=== PATIENT | male | born 1965 | race Two or more races ===

== ENCOUNTER 2018-05-06 13:27 | Emergency (ER) | payer OTHER ==
[~2018-05-06] VITALS: Ht 180.3 cm; Wt 108.9 kg
[2018-05-06] MEDS ORDERED: [UNRECOGNIZED DRUG - OTHER] PO (14:26)
== END 2018-05-06 18:45 | disposition home or self-care (01) ==
LOC: ER 13:27 → EDSEX 13:41 → ER 18:45
DX: R22.1 Localized swelling, mass and lump, neck (principal); K11.20 Sialoadenitis, unspecified; K11.5 Sialolithiasis

== ENCOUNTER 2018-11-17 07:12 | Outpatient (CLI) | payer OTHER ==
[~2018-11-17 07:12] MED LIST: [UNRECOGNIZED DRUG - OTHER] PO
== END 2018-11-17 07:29 | disposition home or self-care (01) ==
LOC: TOM 07:12
DX: C05.1 Malignant neoplasm of soft palate (principal)

== ENCOUNTER 2019-07-12 08:07 | Outpatient (CLI) | payer OTHER | END 2019-07-12 08:49 | disposition home or self-care (01) | LOC: NUCLEAR 08:07 | DX: C05.1 Malignant neoplasm of soft palate (principal) | CPT/HCPCS: 78815; A9552 ==

== ENCOUNTER → 2020-07-19 | Outpatient (CLI) | payer OTHER | END | disposition home or self-care (01) | LOC: MRI 08:47 | PROVIDERS: ATTEND Surgery | DX: R22.1 Localized swelling, mass and lump, neck (principal); C10.8 Malignant neoplasm of overlapping sites of oropharynx | CPT/HCPCS: 70543 ==

== ENCOUNTER → 2020-09-27 | Outpatient (CLI) | payer OTHER | END | disposition home or self-care (01) | LOC: TOM 09-14 07:45 | PROVIDERS: ATTEND Surgery Surgical Oncology | DX: C05.1 Malignant neoplasm of soft palate (principal) ==

== ENCOUNTER 2020-10-31 10:58 | Emergency (ER) | payer OTHER ==
[~2020-10-31] VITALS: Ht 180.3 cm; Wt 99.8 kg
[2020-10-31] MEDS ORDERED: BUTALBIT-ACETA1 EACH PO (16:21)
[2020-10-31] MEDS ORDERED: MAXALT10 MG PO (16:21)
== END 2020-10-31 16:27 | disposition home or self-care (01) ==
LOC: ER 10:58
DX: G43.909 Migraine, unspecified, not intractable, without status migrainosus (principal)

== ENCOUNTER 2020-11-12 10:20 | Emergency (ER) | payer OTHER ==
[~2020-11-12] VITALS: Ht 180.3 cm; Wt 95.3 kg
[~2020-11-12 10:20] MED LIST changes: +BUTALBIT-ACETA1 EACH PO; +MAXALT10 MG PO
[2020-11-12] MEDS ORDERED: MICARDIS40 MG (10:27)
== END 2020-11-12 14:15 | disposition home or self-care (01) ==
LOC: ER 10:20
DX: M54.2 Cervicalgia (principal); M62.838 Other muscle spasm; J32.8 Other chronic sinusitis

== ENCOUNTER → 2021-01-25 | Outpatient (CLI) | payer OTHER ==
[~2021-01-25] MED LIST changes: +MICARDIS40 MG
== END | disposition home or self-care (01) ==
LOC: TOM 06:22
DX: C05.1 Malignant neoplasm of soft palate (principal)

== ENCOUNTER 2021-04-05 14:23 | Outpatient (CLI) | payer OTHER | END 2021-04-05 14:28 | disposition home or self-care (01) | LOC: TOM 14:23 | PROVIDERS: ATTEND Otolaryngology | DX: J32.0 Chronic maxillary sinusitis (principal) ==

== ENCOUNTER 2021-09-03 15:10 | Emergency (ER) | payer OTHER ==
[~2021-09-03] VITALS: Ht 180.3 cm; Wt 81.6 kg
[2021-09-03] MEDS ORDERED: MEDROLPACK PO (19:27)
[2021-09-03] MEDS ORDERED: LEVALBUTER1.25 MG/0. IH (19:27)
[2021-09-03] MEDS ORDERED: MOXIFLOXACIN H400 MG PO (19:27)
[2021-09-03] MEDS ORDERED: MUCINEX DM ER1 EAC1 PO (19:27)
== END 2021-09-03 19:45 | disposition home or self-care (01) ==
LOC: ER 15:10
DX: J40 Bronchitis, not specified as acute or chronic (principal); R05.9 Cough, unspecified

== ENCOUNTER 2021-09-17 12:10 | Emergency (ER) | payer OTHER ==
[~2021-09-17] VITALS: Ht 180.3 cm; Wt 72.6 kg
[~2021-09-17 12:10] MED LIST changes: +LEVALBUTER1.25 MG/0. IH; +MEDROLPACK PO; +MOXIFLOXACIN H400 MG PO; +MUCINEX DM ER1 EAC1 PO
== END 2021-09-17 16:04 | disposition home or self-care (01) ==
LOC: ER 12:10
DX: J32.9 Chronic sinusitis, unspecified (principal)

== ENCOUNTER 2021-09-21 06:47 | Outpatient (CLI) | payer OTHER | END 2021-09-21 16:53 | disposition home or self-care (01) | LOC: TOM 06:47 | PROVIDERS: ATTEND General Practice | DX: C76.0 Malignant neoplasm of head, face and neck (principal) ==

== ENCOUNTER 2021-10-15 07:52 | Outpatient (CLI) | payer OTHER | END 2021-10-15 08:06 | disposition home or self-care (01) | LOC: NUCLEAR 07:52 | PROVIDERS: ATTEND Surgery Surgical Oncology | DX: C05.1 Malignant neoplasm of soft palate (principal) ==